=== PATIENT | female | born 1950 | race Caucasian/White ===

== ENCOUNTER 2019-09-14 12:19 | Inpatient (IN) ==
--- OUTSIDE RECORDS SUMMARY | 2019-09-14 12:25 | External Medical Summary | Continuity of Care Document ---
:1950 Author Name Peggy Burnham Address Unavailable Unavailable , Care Team Providers Name Role Phone Carloz Oliver [email or web address] [place] Unavailable Unavailable Unavailable Unavailable Unavailable Assessments Assessed Problems:Encounter for routine gynecological examinationSevere cervical dysplasiaHypertensionHypercholesterolemiaCondyloma acuminatum Problems Anxiety (300.00) (F41.9) Hypertension (401.9) (I10) Condyloma acuminatum (078.11) (A63.0) Hypercholesterolemia (272.0) (E78.00) History of Severe cervical dysplasia (233.1) (D06.9) Status: Resolved Encounter for routine gynecological examination (V72.31) (Z0 1.419) Allergies and Adverse Reactions No Known Drug Allergies (Allergy) Medications Sertraline HCl TABS Refills: 0 Norvasc TABS Refills: 0 Lipitor TABS Refills: 0 Procedures History of Cervical Conization Status: C ompleted History of Tubal Ligation Status: Comple joey History of Oral Surgery Tooth Extraction Status: Completed Immunizations Immunizations not documented Social History - Smoking Status Current every day smoker Interventions Labs/Procedures/ImagingPap Smear - Thin Prep with Reflex HPV; Done: 12 Jul 2013 Follow-ups/ReferralsFollow-up visit in 1 year Plan of Treatment Planned Observations Planned Goals not documented Results No Known Results Results not documented Encounters Appointment; Ronnell Oliver M.D. 12-Jul-2013 14:40 Encounter Diagnosis: Problem not documented
--- NOTE | 2019-09-14 13:48 | XRay Report ---
XR hip LT 2V w pelvis CLINICAL HISTORY: fall, L hip pain COMPARISON: CT of the abdomen and pelvis January 03, 2013. FINDINGS: The sacroiliac joints and symphysis pubis are intact. There is no acute fracture within th e pelvis or hips. IMPRESSION: No acute fracture within the pelvis or hips. Electronically signed by: Garett Bland M.D. 09/14/2019 1:47 PM
--- NOTE | 2019-09-14 13:49 | XRay Report ---
XR femur LT 2V routine CLINICAL HISTORY: left hip/leg pain pain COMPARISON: None. DISCUSSION: The bones and joint spaces appear intact. There is no evidence of fracture, dislocation o r bony disease. There is no evidence for soft tissue swelling. IMPRESSION: Negative study. The above report was generated using voice recognition software. It may contain grammatical, syntax or spelling errors. Electronically signed by: Emre Ruvalcaba M.D. 09/14/2019 1:47 PM
--- NOTE | 2019-09-14 14:18 | CT Scan Report ---
CT OF THE ABDOMEN AND PELVIS WITHOUT CONTRAST CLINICAL HISTORY: Left flank pain following fall. COMPARISON STUDY: CT of the abdomen and pelvis November 02, 2013. TECHNIQUE: Axial images of the abdomen and pelvis were obtained without IV contrast. Images were revi ewed in the axial, sagittal, and coronal planes. Automated exposure control was utilized for the yolette dy. A dose lowering technique was utilized adhering to the principles of ALARA. FINDINGS: Please note that the chest CT will be reported separately. Evaluation of the abdomen and pe lvis is suboptimal as unenhanced examination. No hemoperitoneum or pneumoperitoneum is noted. There i s no evidence for traumatic injury to the liver, spleen, adrenal glands, kidneys or pancreas on this unenhanced study. Gallbladder wall is partially calcified. The gallbladder is distended. There is no adjacent infiltration. There is no evidence for a bowel obstruction. No lymphadenopathy is present. T here is no free fluid. Bladder is moderately distended. No acute lumbar spine or pelvic fractures carey ntified. There is moderate atherosclerotic plaque of the abdominal aorta which is normal in caliber. IMPRESSION: 1. No acute traumatic findings within the abdomen or pelvis on unenhanced exam. 2. Partially calcified gallbladder wall with moderate gallbladder distention. No adjacent infiltratio n. These findings could be correlated with right upper quadrant pain and ultrasound if indicated. If asymptomatic, nonemergent surgical consultation might be considered given the partially calcified gal lbladder wall which suggests developing porcelain gallbladder. Electronically signed by: Garett Bland M.D. 09/14/2019 2:17 PM
--- NOTE | 2019-09-14 14:50 | CT Scan Report ---
CT chest wo con CT DOSE: 535.79 mGy.cm HISTORY: Trauma fall, L axillary pain TECHNIQUE: Multiaxial CT images of the chest were performed without contrast. A dose lowering techni que was utilized adhering to the principles of ALARA. COMPARISON: None. FINDINGS: The lungs are clear. The mediastinal vascular structures are within normal limits. No media stinal or hilar lymphadenopathy. No pleural effusion or pneumothorax. Limited views of the upper abdo men demonstrate a normal liver and spleen. Mild chronic apical fibrotic change considered benign. IMPRESSION: No acute process. The above report was generated using voice recognition software. It may contain grammatical, syntax or spelling errors. Electronically signed by: Emre Ruvalcaba M.D. 09/14/2019 2:49 PM
[2019-09-14 15:33] LABS: Basophils # (auto) 0.03 K/uL (0-0.2); Basophils % (auto) 0.3 %; Eosinophils # (auto) 0.07 K/uL (0-0.5); Eosinophils % (auto) 0.7 %; Hematocrit (blood only) 41.9 % (37-47); Hemoglobin 14.8 g/dL (12.0-16.0); Immature Granulocytes # (auto) 0.03 K/uL (0.00-0.02); Immature Granulocytes % (auto) 0.3 %; Lymphocytes # (auto) 2.27 K/uL (1.2-3.4); Lymphocytes % (auto) 21.6 %; Mean Corpuscular Hemoglobin 33.4 pg (25-34); Mean Corpuscular Hgb Conc 35.3 g/dL (32-36); Mean Corpuscular Volume 94.6 fL (80-100); Mean Platelet Volume 9.7 fL (7.4-10.4); Monocytes # (auto) 0.86 K/uL (0.11-0.59); Monocytes % (auto) 8.2 %; Neutrophils # (auto) 7.25 K/uL (1.4-6.5); Neutrophils % (auto) 68.9 %; Platelet Count 346 K/uL (130-400); RDW Coefficient of Variation 12.5 % (11.5-14.5); RDW Standard Deviation 43.6 fL (36.4-46.3); Red Blood Count 4.43 M/uL (4.2-5.4); White Blood Count 10.51 K/uL (4.8-10.8)
[2019-09-14 16:12] LABS: BUN Creatinine Ratio 15.7 (10-20); Calcium 9.5 mg/dl (8.5-10.1); Creatinine Clr Calc Pharmacy 70.7 ml/min; Est GFR (African American) 98.1; Est GFR (Non-African American) 84.6; Potassium 3.5 mmol/L (3.5-5.1)
[2019-09-14 16:22] LABS: Thyroid Stimulating Hormone 1.12 uIu/ml (0.300-4.500)
[2019-09-14 16:53] LABS: Appearance Urine Clear (Clear); Bilirubin Urine Negative (Negative); Blood Urine Negative (Negative); Color Urine Yellow; Glucose Urine UA Negative (Negative); Ketones Urine Negative (Negative); Leukocyte Esterase Urine Negative (Negative); Nitrite Urine Negative (Negative); Protein Urine Negative (Negative); Specific Gravity Urine 1.009 (1.000-1.030); Urobilinogen Urine Negative (Negative); pH Urine 6.5 (4.5-7.5)
[2019-09-14] MEDS ORDERED: POLYETHYLENE (MIRALAX) 17 GM PACK PO PRN (18:08)
[2019-09-14] MEDS ORDERED: ACETAMINOPHEN 325 MG TAB PO PRN (18:08)
[2019-09-14] MEDS ORDERED: ALUMINUM/MAGNESIUM SUSP 30 ML UDC PO PRN (18:08)
[2019-09-14] MEDS ORDERED: LABETALOL HCL IV 5 MG/ML 20ML IV STA (18:14)
--- NOTE | 2019-09-14 19:32 | History & Physical Report ---
Date of Service September 14, 2019 Assessment & Plan (1) Fall: 69 yo F w/ history of a stroke admitted for progressive weakness and fall Fall w/o acute traumatic process found on Femur XR, Hip and Pelvis XR, Abd/pelvis CT - no history of arrhythmia, no palpitations, no cardiac history, no LOC - placed on tele and continue to monitor for irregular rhythm - bruising up the right upper extremity - did not initiate chemotherapeutic DVT prophylaxis due to bruising, recent fall and concern for continued falls - likely 2/2 weakness - OT/PT evaluation placed progressive weakness likely 2/2 deconditioning, over 1 month - Electrolytes normal, glucose 109, TSH 1.12 - PT/OT evaluation placed Hx. of stroke - continue ASA 81 mg - continue to encourage smoking cessation - consider starting a statin for secondary prevention of stroke Gallbladder incidentally found to have calcification on CT abd/pelvis - consider general surgery consult vs. outpatient evaluation - patient nTTP in the RUQ DVT: SCDs Diet: regular Dispo: Med/Surg with Tele (2) Weakness: (3) Ambulatory dysfunction: History of Present Illness Chief Complaint: Weakness and fall Primary Care Provider: NO PCP Shirley Meadows is here for a fall that happened this morning. She described the fall as not being able to support herself on her walker. She has been getting progressively weaker over the last month. She previously was able to walk around and go up and down one step in their house but now does not feel stable enough to do this. She has a bruise on the right upper arm and left knee. She has a history of a stoke approximately 4 years ago. The stroke left her with weakness in her left side, she started using a walker after this. She has not seen a primary doctor in the last 4-5 years. She has only been taking 81 mg of ASA a day, and Miralax for occasional constipation. Surgical Hx.: Cervical precancer removed Social Hx.: 35 pack year smoking history, precontemplative ETOH: avg. 7/week Exercise includes doing dishes and working around the house Diet: described as "not the best," one coffee a day and drinks diet soda FHx: 2 X sisters had strokes in their 60's Preventative: patient declined the flu shot Allergies Allergy/AdvReac Type Severity Reaction Status Date / Time medroxyprogesterone Allergy pruritic Verified 09/14/19 13:52 skin [place] Allergy Mild Unknown Uncoded 09/14/19 13:52 Home Medications Home Medications Medication Instructions Recorded Confirmed Type No Known Home Medications 09/14/19 09/14/19 History amlodipine 5 mg PO DAILY #30 tab 09/20/19 Rx aspirin [Ecotrin Low Strength] 81 mg PO QAM 30 Days #30 tab 09/20/19 Rx atorvastatin 20 mg PO QAM 30 Days #30 tab 09/20/19 Rx Past Med/Surg History Medical History Hypertension History of stroke CVA (cerebral vascular accident) Family History Other Cancer Diabetes Social History Preferred Language: Citizen Of [place] Communication Ability: Effective [employer]ger [employer] Required: No Beliefs That Will Affect Care: None marital status: Current Living Situation: Spouse current occupational status: employed Feels Safe at Home: Yes Smoking Status: Current every day smoker Tobacco Type: cigarettes ; Cigarettes Per Day: 10 ; Hx Alcohol Use: Yes Alcohol type: beer Hx Substance Use: No Review of Systems Review of Systems: Constitutional: Denies fever/chills, N/V, fatigue, change in weight Head: Denies trauma to her head, LOC, Headache, confusion, lightheadedness, change in vision Neurologic: Denies syncope, slurring of speech, numbness, tingling Cardiac: Denies chest pain, murmurs, palpitations, PND, DIAZ, leg edema Pulm: Denies cough, asthma, shortness of breath, pain on inspiration, wheezing, sputum production Skin: Denies itching, rashes, lumps, sores GI: Denies diarrhea, dysphagia, bleeding (oral or anal), change in bowel habits : denies urgency, frequency dysuria Physical Exam Constitutional: well nourished, cooperative and comfortable; no acute distress Eyes: PERRL, conjunctivae normal, anicteric sclerae ENMT: external ear and nose normal, oropharynx normal Neck: trachea midline, no thyromegaly Respiratory: normal respiratory effort, lungs clear to auscultation Cardiovascular: RRR, no murmur, no edema Gastrointestinal (Abdomen): normal bowel sounds, soft, nontender, no hepatosplenomegaly Musculoskeletal: Muscle strength 4/5 in the left upper and lower extremity. Neurologic: patellar DTR's 2+ bilat, sensation intact and PERRL, EOMI, accommodation nl, no face palsy, no dysarthria CN's II-XI intact bilaterally Speech / Cognition: normal speech Psychiatric: A+Ox3, euthymic affect Results & Data Vital Signs (Past 12 Hours) Vital Signs Temp Pulse Pulse Resp BP BP Pulse Ox 09/14/19 18:45 64 16 155/95 H 95 09/14/19 18:00 75 20 181/107 H 95 09/14/19 16:27 77 18 176/98 H 95 09/14/19 14:30 79 22 179/114 H 97 09/14/19 12:27 36.9 C 89 22 169/[address] IMPRESSION: No acute process. Femur XR IMPRESSION: Negative study. Hip and pelvis XR IMPRESSION: No acute fracture within the pelvis or hips. CT abd/pelvis IMPRESSION: 1. No acute traumatic findings within the abdomen or pelvis on unenhanced exam. 2. Partially calcified gallbladder wall with moderate gallbladder distention. No adjacent infiltration. These findings could be correlated with right upper quadrant pain and ultrasound if indicated. If asymptomatic, nonemergent surgical consultation might be considered given the partially calcified gallbladder wall which suggests developing porcelain gallbladder. Code Status & VTE Plan Code Status DNR VTE Prophylaxis Plan VTE Prophylaxis will be ordered: Yes Supervising Physician Co-Signing Physician Notes I saw and examined pt with Dr. Bradley MD and I was actively involved in the assessment and plan . I agree with this H&P. PG Care Time/CCT Total # of Minutes Spent Total Time Spent with Patient: Total time spent is greater than 50% in coordination of care (as documented) at patient's floor/unit and/or counseling patient: Resident Activity Tracking Resident Involvement: Resident Care Provided Care Provided: Adult Hospital Medicine (1) Fall Encounter type: initial encounter Qualified Code(s): W19.XXXA - Unspecified fall, initial encounter
--- NOTE | 2019-09-14 20:20 | Emergency Department Note ---
Entered by Disha Heard acting as a scribe for Stalin Velazquez M.D. History of Present Illness General Chief complaint: Fall Stated complaint: fall/ L side pain Source: patient History of Present Illness Onset (ago): minute(s) (prior to arrival) Location: left (hip, thigh, ribs) Pain Consistency: + other (episode) Maximum Pain Intensity: 4 Current Pain Intensity: 5 Quality: + other (fall) Associated symptoms: + denies other symptoms (dizziness, abdominal pain, neck pain, back pain, LOC, arm pain, hitting her head, falling frequently), + weakness and + other (left hip pain, left thigh pain, left sided rib pain) The patient is a 69 year old female who presents to the Emergency Room with complaints of an episode of a fall occurring prior to arrival. The patient stat es that she had a stroke a few years ago and has some left sided deficits from it. She notes that she has used a walker because of it. She states that over time she has gradually been deteriorating in strength. She reports that this morning she ended up falling because her legs just gave out. She states that she felt too weak to stand and hold herself up. She reports that she ended up collapsing straight down, but since then has had left hip pain, left thigh pain, and left sided rib pain. She states that she was unable to stand up on her own and had to have her help get her up and to a chair. The patient currently rates her pain as a 5/10 in severity. The patient denies dizziness, ab dominal pain, neck pain, back pain, hitting her head, LOC, arm pain, ever falling from being weak before, falling frequently, taking anything for her pain, and the use of blood thinners. Home Medications Home Medications Medication Instructions Recorded Confirmed Type No Known Home Medications 09/14/19 09/14/19 History Allergies Allergy/AdvReac Type Severity Reaction Status Date / Time medroxyprogesterone Allergy pruritic Verified 09/14/19 13:52 skin [place] Allergy Mild Unknown Uncoded 09/14/19 13:52 Past Med/Surg History Medical History CVA (cerebral vascular accident) Family History Other Cancer Diabetes Social History Preferred Language: Divehi Communication Ability: Effective [employer] W[employer] Required: No Beliefs That Will Affect Care: None marital status: Current Living Situation: Spouse current occupational status: employed Other Information That Helps Us Care for You: No Feels Safe at Home: Yes Safety Concerns: Feels Safe At This Time Smoking Status: Current every day smoker Tobacco Type: cigarettes ; Cigarettes Per Day: 10 ; Hx Alcohol Use: Yes Alcohol type: beer Hx Substance Use: No Review of Systems See HPI for pertinent positives & negatives. and A total of 10 systems reviewed and were otherwise negative Physical Exam Vital Signs Vital Signs - 24 hr 09/14/19 12:27 09/14/19 14:30 09/14/19 16:27 Temperature 36.9 C Temperature Source Oral Sepsis Recent Fever Within 48 Hours No Sepsis Action Taken by Nursing No Action Required Pulse Rate 89 Pulse Rate [Right Finger] 79 77 Pulse Rhythm Regular Pulse Rhythm [Right Finger] Regular Pulse Strength Normal Pulse Strength [Right Finger] Normal Respiratory Rate 22 22 18 Respiratory Effort / Characteristics Non-Labored Spontaneous Non-Labored Non-Labored Spontaneous Respiratory Depth Normal Normal Normal Respiratory Pattern Regular Regular Blood Pressure 169/111 H Blood Pressure [Right Arm] 179/114 H 176/98 H Blood Pressure Mean 130 Blood Pressure Mean [Right Arm] 135 124 Blood Pressure Position Lying Blood Pressure Position [Right Arm] Lying Pulse Oximetry 94 97 95 Oxygen Delivery Method Room Air Room Air Room Air 09/14/19 18:00 Temperature Temperature Source Sepsis Recent Fever Within 48 Hours Sepsis Action Taken by Nursing Pulse Rate Pulse Rate [Right Finger] 75 Pulse Rhythm Pulse Rhythm [Right Finger] Pulse Strength Pulse Strength [Right Finger] Respiratory Rate 20 Respiratory Effort / Characteristics Non-Labored Spontaneous Respiratory Depth Normal Respiratory Pattern Regular Blood Pressure Blood Pressure [Right Arm] 181/107 H Blood Pressure Mean Blood Pressure Mean [Right Arm] 131 Blood Pressure Position Blood Pressure Position [Right Arm] Sitting Pulse Oximetry 95 Oxygen Delivery Method Room Air GENERAL: Awake, alert, well-appearing, in no distress HENT: Normocephalic, atraumatic EYES: Normal conjunctiva. Sclera non-icteric. NECK: Supple. No nuchal rigidity. RESPIRATORY: Clear to auscultation. No wheezes. Normal respiratory effort. CARDIAC: Normal rate. Normal rhythm. Extremities warm and well perfused. GI: Soft, non-distended. No tenderness to palpation. No rebound or guarding. No masses. RECTAL: Deferred. MUSCULOSKELETAL: Atraumatic. Mild left chest wall tenderness. There is no CVA tenderness to palpation. Contusion to right upper arm without bony tenderness. NVI in all extremities. LOWER EXTREMITIES: Calves are equal size bilaterally and non-tender. No edema. Mild left hip tenderness. NEURO: Normal sensorium. No sensory or motor deficits noted. No facial droop. No slurred speech. Flattened affect. SKIN: Warm and dry. No jaundice noted. Course 1314: Past medical records reviewed. The patient was evaluated in room B9. A complete history and physical exam was performed. 1500: I reevaluated the patient and she is too weak to walk and go home. We are going to see about placing her in a rehab. 1619: The field nurse case manager informed me that the patient will not be able to get into a rehab tonight. 1637: I reevaluated the patient and updated her and her on her test results. I discussed the treatment plan with them. They verbally agree and understand. 1659: I discussed the patient's case with Dr. Patel- [facility] [place] Hospitalist. She will evaluate the patient for further management. Administered Medications Discontinued Medications Labetalol HCl (Normodyne) 10 mg IV NOW STA Stop: 09/14/19 18:15 Last Admin: 09/14/19 18:43 Dose: 10 mg Documented by: [id number] Cosigned by: [id number] Medical Decision Making Differential Diagnosis Differential diagnoses include major intracranial, cervical, spinal, thoracic, abdominal, pelvic and neurologic injury. Fracture, contusion, sprain, strain, laceration, abrasions included as well. Medical Records Attestation: I reviewed the patient's medical records. Home Medications Current Medication List: was personally reviewed by me Laboratory Data Attestation: I reviewed the patient's lab results. Result diagrams: 09/14/19 15:19 09/14/19 15: Lab Results 09/14/19 09/14/19 09/14/19 Range/Units 15: 15: 15:19 WBC 10.51 (4.8-10.8) K/uL RBC 4.43 (4.2-5.4) M/uL Hgb 14.8 (12.0-16.0) g/dL Hct 41.9 (37-47) % MCV 94.6 (80-100) fL MCH 33.4 (25-34) pg MCHC 35.3 (32-36) g/dL RDW Std Deviation 43.6 (36.4-46.3) fL RDW Coeff of Sloan 12.5 (11.5-14.5) % Plt Count 346 (130-400) K/uL MPV 9.7 (7.4-10.4) fL Immature Gran % (Auto) 0.3 % Neut % (Auto) 68.9 % Lymph % (Auto) 21.6 % Keith % (Auto) 8.2 % Eos % (Auto) 0.7 % Baso % (Auto) 0.3 % Immature Gran # (Auto) 0.03 H (0.00-0.02) K/uL Neut # (Auto) 7.25 H (1.4-6.5) K/uL Lymph # (Auto) 2.27 (1.2-3.4) K/uL Keith # (Auto) 0.86 H (0.11-0.59) K/uL Eos # (Auto) 0.07 (0-0.5) K/uL Baso # (Auto) 0.03 (0-0.2) K/uL Sodium 140 (136-145) mmol/L Potassium 3.5 (3.5-5.1) mmol/L Chloride 109 H (98-107) mmol/L Carbon Dioxide 22 (21-32) mmol/L Anion Gap 9.0 (3-11) BUN 11 (7-18) mg/dl Creatinine 0.73 (0.6-1.2) mg/dl Est Cr Clr Drug Dosing 70.7 ml/min Est GFR ( Amer) 98.1 Est GFR (Non-Af Amer) 84.6 BUN/Creatinine Ratio 15.7 (10-20) Glucose 109 H (70-99) mg/dl Calcium 9.5 (8.5-10.1) mg/dl Ammonia (11-32) umol/L TSH 1.120 (0.300-4.500) uIu/ml Urine Color Urine Appearance (Clear) Urine pH (4.5-7.5) Ur Specific Golden (1.000-1.030) Urine Protein (Negative) Urine Glucose (UA) (Negative) Urine Ketones (Negative) Urine Blood (Negative) Urine Nitrite (Negative) Urine Bilirubin (Negative) Urine Urobilinogen (Negative) Ur Leukocyte Esterase (Negative) Ethyl Alcohol mg/dL < 3.0 (0-3) mg/dl 09/14/19 09/14/19 Range/Units 15:19 16:28 WBC (4.8-10.8) K/uL RBC (4.2-5.4) M/uL Hgb (12.0-16.0) g/dL Hct (37-47) % MCV (80-100) fL MCH (25-34) pg MCHC (32-36) g/dL RDW Std Deviation (36.4-46.3) fL RDW Coeff of Sloan (11.5-14.5) % Plt Count (130-400) K/uL MPV (7.4-10.4) fL Immature Gran % (Auto) % Neut % (Auto) % Lymph % (Auto) % Keith % (Auto) % Eos % (Auto) % Baso % (Auto) % Immature Gran # (Auto) (0.00-0.02) K/uL Neut # (Auto) (1.4-6.5) K/uL Lymph # (Auto) (1.2-3.4) K/uL Keith # (Auto) (0.11-0.59) K/uL Eos # (Auto) (0-0.5) K/uL Baso # (Auto) (0-0.2) K/uL Sodium (136-145) mmol/L Potassium (3.5-5.1) mmol/L Chloride (98-107) mmol/L Carbon Dioxide (21-32) mmol/L Anion Gap (3-11) BUN (7-18) mg/dl Creatinine (0.6-1.2) mg/dl Est Cr Clr Drug Dosing ml/min Est GFR ( Amer) Est GFR (Non-Af Amer) BUN/Creatinine Ratio (10-20) Glucose (70-99) mg/dl Calcium (8.5-10.1) mg/dl Ammonia < 10.0 L (11-32) umol/L TSH (0.300-4.500) uIu/ml Urine Color Yellow Urine Appearance Clear (Clear) Urine pH 6.5 (4.5-7.5) Ur Specific Golden 1.009 (1.000-1.030) Urine Protein Negative (Negative) Urine Glucose (UA) Negative (Negative) Urine Ketones Negative (Negative) Urine Blood Negative (Negative) Urine Nitrite Negative (Negative) Urine Bilirubin Negative (Negative) Urine Urobilinogen Negative (Negative) Ur Leukocyte Esterase Negative (Negative) Ethyl Alcohol mg/dL (0-3) mg/dl Imaging Data Radiologist's Impression: Radiology results as stated below per my review and the radiologist's interpretation: XR hip LT 2V w pelvis CLINICAL HISTORY: fall, L hip pain COMPARISON: CT of the abdomen and pelvis January 03, 2013. FINDINGS: The sacroiliac joints and symphysis pubis are intact. There is no acute fracture within the pelvis or hips. IMPRESSION: No acute fracture within the pelvis or hips. Electronically signed by: Garett Bland M.D. 09/14/2019 1:47 PM XR femur LT 2V routine CLINICAL HISTORY: left hip/leg pain pain COMPARISON: None. DISCUSSION: The bones and joint spaces appear intact. There is no evidence of fracture, dislocation or bony disease. There is no evidence for soft tissue swelling. IMPRESSION: Negative study. The above report was generated using voice recognition software. It may contain grammatical, syntax or spelling errors. Electronically signed by: Emre Ruvalcaba M.D. 09/14/2019 1:[address] chest wo con CT DOSE: 535.79 mGy.cm HISTORY: Trauma fall, L axillary pain TECHNIQUE: Multiaxial CT images of the chest were performed without contrast. A dose lowering technique was utilized adhering to the principles of ALARA. COMPARISON: None. FINDINGS: The lungs are clear. The mediastinal vascular structures are within normal limits. No mediastinal or hilar lymphadenopathy. No pleural effusion or pneumothorax. Limited views of the upper abdomen demonstrate a normal liver and spleen. Mild chronic apical fibrotic change considered benign. IMPRESSION: No acute process. The above report was generated using voice recognition software. It may contain grammatical, syntax or spelling errors. Electronically signed by: Emre Ruvalcaba M.D. 09/14/2019 2:[address] OF THE ABDOMEN AND PELVIS WITHOUT CONTRAST CLINICAL HISTORY: Left flank pain following fall. COMPARISON STUDY: CT of the abdomen and pelvis November 02, 2013. TECHNIQUE: Axial images of the abdomen and pelvis were obtained without IV contrast. Images were reviewed in the axial, sagittal, and coronal planes. Automated exposure control was utilized for the study. A dose lowering technique was utilized adhering to the principles of ALARA. FINDINGS: Please note that the chest CT will be reported separately. Evaluation of the abdomen and pelvis is suboptimal as unenhanced examination. No hemoperitoneum or pneumoperitoneum is noted. There is no evidence for traumatic injury to the liver, spleen, adrenal glands, kidneys or pancreas on this unenhanced study. Gallbladder wall is partially calcified. The gallbladder is distended. There is no adjacent infiltration. There is no evidence for a bowel obstruction. No lymphadenopathy is present. There is no free fluid. Bladder is moderately distended. No acute lumbar spine or pelvic fractures identified. There is moderate atherosclerotic plaque of the abdominal aorta which is normal in caliber. IMPRESSION: 1. No acute traumatic findings within the abdomen or pelvis on unenhanced exam. 2. Partially calcified gallbladder wall with moderate gallbladder distention. No adjacent infiltration. These findings could be correlated with right upper quadrant pain and ultrasound if indicated. If asymptomatic, nonemergent surgical consultation might be considered given the partially calcified gallbladder wall which suggests developing porcelain gallbladder. Electronically signed by: Garett Bland M.D. 09/14/2019 2:17 PM Blood Pressure Blood Pressure Findings: Elevated blood pressure Blood Pressure Disposition: further management by hospitalist SHAMEKA Key Patient is a 69-year-old female with a past medical history including hypertension and prior stroke presenting today after a fall. Evidently uses a walker at home with some left-sided deficits from her old stroke that have been somewhat worsening. Today at 930 fell from standing onto her left side. Complaining of left rib, hip, thigh pain. Denies loss of consciousness. Patient has good range of motion left lower extremity lowering my suspicion for hip fracture. Some left axillary tenderness with assist scans of the chest abdomen pelvis noncontrast were obtained to exclude traumatic injury. X-rays of the left femur and hip were completed. Again denies striking her head or neck pain. Has a bruise on her right upper arm but no significant tenderness here. Denies use of blood thinners. States her legs just got weak and gave out on her and she is had some chronic weakness issues relying on a walker for some time. No new focal neurological deficits. Does not sound syncopal to to me. CT of the chest abdomen pelvis without significant traumatic injuries. CT the abdomen pelvis does notes changes of the gallbladder. Patient has significant tender ness here but did relay these findings the patient for further outpatient work- up for possible porcelain gallbladder. Patient and however do not feel comfortable at home due to her weakness. Basic labs were obtained without significant findings here. Again the patient has no complaint of head trauma or focal neurological deficits although she has a bit of a flat affect. Discussed with case management. Unable to get rehab referrals out of the ER at this time for her. Discussed with the hospitalist for admission given her weakness and ambulatory dysfunction for further rehab and treatment. Impression & Plan Ambulatory dysfunction, Fall, Weakness Discharge Plan Visit Data *Final* Discharge Date/Time: 09/14/19 19:04 Chief Complaint: Fall Stated Complaint: fall/ L side pain ED Provider: Stalin Velazquez Discharge Problem: Ambulatory dysfunction, Fall, Weakness Patient Disposition: Admitted As Inpatient Discharge Instructions Interventions: ED Discharge Assessment Last Done: 09/14/19 19:04 Discharge Problem: Fall Qualifiers: Encounter type: initial encounter Qualified Code(s): W19.XXXA - Unspecified fall, initial encounter The scribe's documentation has been prepared under my direction and personally reviewed by me in its entirety. I confirm that the note above accurately reflects all work, treatment, procedures, and medical decision making performed by me.
[2019-09-14] MEDS: ACETAMINOPHEN 325 MG TAB PO PRN (20:39)
[2019-09-15 07:43] LABS: BUN Creatinine Ratio 10.7 (10-20); Calcium 9.1 mg/dl (8.5-10.1); Creatinine Clr Calc Pharmacy 69.5 ml/min; Est GFR (African American) 98.1; Est GFR (Non-African American) 84.6; Potassium 3.5 mmol/L (3.5-5.1)
--- NOTE | 2019-09-15 10:26 | Hospitalist Progress Note ---
Date of Service September 15, 2019 Assessment & Plan (1) Weakness: Patient with generalized weakness, may be multifactorial including deconditioning. PT saw the patient this morning is recommending rehab. We are awaiting OT evaluation. Patient typically ablates with a walker and is otherwis e independent lives with her . Present on Admission?: Yes (2) History of stroke: Patient is on low-dose aspirin, should be continued. I would like to add a high density statin to this regimen. Check fasting lipids as well as hemoglobin A1c. (3) Hypertension: Patient's blood pressure remains elevated. Will start amlodipine 5 mg p.o. daily, first dose today. Monitor for further titration versus the possible need for a second agent. This may need to be titrated after the patient's discharge. Subjective Patient with no active complaints today. She does note a slow progressive weakness over the course of several weeks. She typically relates with a walker at home. Of note, the patient denies taking any prescription medications and only uses a low-dose aspirin. I have noted that her blood pressure has been elevated throughout her hospital course so far and is relatively bradycardic with a pulse of 59 this morning. Her only injury is a small bruise in the anterior right shoulder without accompanying hematoma. Review of Systems Review of Systems: All systems reviewed & are unremarkable except as noted in HPI & below Physical Exam Physical Exam: GENERAL: Non-toxic in appearance. INTEGUMENTARY: Warm, dry, and [place]. HEAD: Normocephalic. EYES: without scleral icterus or trauma. ENT/OROPHARYNX: clear and moist. LYMPHADENOPATHY/NECK: Is supple without lymphadenopathy or meningismus. RESPIRATORY: Lungs clear and equal. CARDIOVASCULAR: Regular rate and rhythm. GI/ABDOMEN: Soft and nontender. No organomegaly or pulsatile mass. No rebound or guarding. Normal bowel sounds. EXTREMITIES: Warm and well perfused. BACK: No CVA tenderness. NEUROLOGICAL: Intact without focal deficits. PSYCHIATRIC: normal affect. MUSCULOSKELETAL: Normally developed with good muscle tone. Results & Data Vital Signs (Past 12 Hours) Vital Signs Temp Pulse Pulse Resp BP BP Pulse Ox 09/15/19 07:48 59 L 09/15/19 07:47 36.8 C 66 20 166/98 H 95 09/15/19 04:27 36.4 C L 62 18 145/83 H 94 09/14/19 23:00 36.7 C 64 20 117/75 96 09/14/19 22:56 70 PG Care Time/CCT Total # of Minutes Spent Total Time Spent with Patient: Total time spent is greater than 50% in coordination of care (as documented) at patient's floor/unit and/or counseling patient:
[2019-09-15] MEDS: AMLODIPINE BESYLATE 5 MG TAB PO SCH (11:41)
[2019-09-16] MEDS: ACETAMINOPHEN 325 MG TAB PO PRN (07:12)
[2019-09-16 07:58] LABS: Basophils # (auto) 0.04 K/uL (0-0.2); Basophils % (auto) 0.6 %; Eosinophils # (auto) 0.28 K/uL (0-0.5); Eosinophils % (auto) 4.1 %; Hematocrit (blood only) 41.4 % (37-47); Hemoglobin 13.8 g/dL (12.0-16.0); Immature Granulocytes # (auto) 0.02 K/uL (0.00-0.02); Immature Granulocytes % (auto) 0.3 %; Lymphocytes # (auto) 2.14 K/uL (1.2-3.4); Lymphocytes % (auto) 31.6 %; Mean Corpuscular Hgb Conc 33.3 g/dL (32-36); Mean Platelet Volume 10.6 fL (7.4-10.4); Monocytes # (auto) 0.67 K/uL (0.11-0.59); Monocytes % (auto) 9.9 %; Neutrophils # (auto) 3.62 K/uL (1.4-6.5); Neutrophils % (auto) 53.5 %; Platelet Count 330 K/uL (130-400); RDW Coefficient of Variation 12.8 % (11.5-14.5); RDW Standard Deviation 46.4 fL (36.4-46.3); Red Blood Count 4.18 M/uL (4.2-5.4); White Blood Count 6.77 K/uL (4.8-10.8)
[2019-09-16 08:14] LABS: Estimated Average Glucose 120 mg/dl; Hemoglobin A1C 5.8 % (4.5-5.6)
[2019-09-16] MEDS: AMLODIPINE BESYLATE 5 MG TAB PO SCH (08:23)
[2019-09-16] MEDS: ATORVASTATIN 20 MG TAB PO SCH (08:23)
[2019-09-16 08:24] LABS: BUN Creatinine Ratio 12.7 (10-20); Calcium 8.5 mg/dl (8.5-10.1); Est GFR (African American) 85.2; Est GFR (Non-African American) 73.5; Magnesium 2.4 mg/dl (1.8-2.4); Potassium 3.5 mmol/L (3.5-5.1)
[2019-09-16] MEDS: ASPIRIN 81 MG ECTAB PO SCH (08:46)
--- NOTE | 2019-09-16 12:44 | Hospitalist Progress Note ---
Date of Service September 16, 2019 Assessment & Plan (1) Weakness: Patient with generalized weakness, may be multifactorial including deconditioning. Both PT and OT are recommending acute rehab placement, awaiting insurance approval although I see from documentation the patient already has a bed. If the approval is obtained, patient could conceivably be discharged today. (2) History of stroke: Patient is on low-dose aspirin, should be continued. Continue atorvastatin as ordered. Patient has a negative hemoglobin A 1C. (3) Hypertension: Much improved with the addition of amlodipine. Continue to monitor, consider further imaging depending on ongoing blood pressures. Subjective Patient with no active complaints today. She is tearful since she has a sister in the [place] who is currently on hospice and does not have long to live. She denies any chest pain or shortness of breath. She does feel that she requires short-term placement for rehab and is working with case management for this. She otherwise has no new issues and is tolerating her medications well. Blood pressure is also much improved with the addition of amlodipine. Review of Systems Review of Systems: All systems reviewed & are unremarkable except as noted in HPI & below Physical Exam Physical Exam: GENERAL: Non-toxic in appearance. INTEGUMENTARY: Warm, dry, and [place]. HEAD: Normocephalic. EYES: without scleral icterus or trauma. ENT/OROPHARYNX: clear and moist. LYMPHADENOPATHY/NECK: Is supple without lymphadenopathy or meningismus. RESPIRATORY: Lungs clear and equal. CARDIOVASCULAR: Regular rate and rhythm. GI/ABDOMEN: Soft and nontender. No organomegaly or pulsatile mass. No rebound or guarding. Normal bowel sounds. EXTREMITIES: Warm and well perfused. BACK: No CVA tenderness. NEUROLOGICAL: Intact without focal deficits. PSYCHIATRIC: normal affect. MUSCULOSKELETAL: Normally developed with good muscle tone. Results & Data Vital Signs (Past 12 Hours) Vital Signs Temp Pulse Pulse Resp BP Pulse Ox 09/16/19 08:01 36.8 C 62 16 137/84 95 09/16/19 07:00 54 L 09/16/19 05:20 57 L 09/16/19 03:52 36.3 C L 88 16 125/84 97 PG Care Time/CCT Total # of Minutes Spent Total Time Spent with Patient: Total time spent is greater than 50% in coordination of care (as documented) at patient's floor/unit and/or counseling patient:
[2019-09-17] MEDS: ASPIRIN 81 MG ECTAB PO SCH (07:44)
[2019-09-17] MEDS: ATORVASTATIN 20 MG TAB PO SCH (07:44)
[2019-09-17] MEDS: AMLODIPINE BESYLATE 5 MG TAB PO SCH (07:44)
--- NOTE | 2019-09-17 09:39 | Hospitalist Progress Note ---
Date of Service September 17, 2019 Assessment & Plan (1) Weakness: Patient with generalized weakness, may be multifactorial including deconditioning. Patient was previously living at home but was having frequent falls, patient is now planned to go to nursing home once insurance approval and bed arrangements are made. Continue PT/OT until then. (2) History of stroke: Patient is on low-dose aspirin, should be continued. Continue atorvastatin as ordered. Patient has a normal hemoglobin A 1C. (3) Hypertension: Much improved with the addition of amlodipine. A little elevated today, if this continues, consider addition of a second agent. Subjective Patient with no active complaints today. Sitting in chair next to bed, seems to be better emotionally. Has no new complaints. Patient's insurance rejected acute rehab, patient now working towards nursing home. Review of Systems Review of Systems: All systems reviewed & are unremarkable except as noted in HPI & below Physical Exam Physical Exam: GENERAL: Non-toxic in appearance. INTEGUMENTARY: Warm, dry, and [place]. HEAD: Normocephalic. EYES: without scleral icterus or trauma. ENT/OROPHARYNX: clear and moist. LYMPHADENOPATHY/NECK: Is supple without lymphadenopathy or meningismus. RESPIRATORY: Lungs clear and equal. CARDIOVASCULAR: Regular rate and rhythm. GI/ABDOMEN: Soft and nontender. No organomegaly or pulsatile mass. No rebound or guarding. Normal bowel sounds. EXTREMITIES: Warm and well perfused. BACK: No CVA tenderness. NEUROLOGICAL: Intact without focal deficits. PSYCHIATRIC: normal affect. MUSCULOSKELETAL: Normally developed with good muscle tone. Results & Data Vital Signs (Past 12 Hours) Vital Signs Temp Pulse Pulse Resp BP Pulse Ox 09/17/19 07:14 36.6 C 95 H 20 167/89 H 97 09/17/19 03:28 36.5 C 93 H 19 148/93 H 96 09/17/19 03:12 55 L 09/16/19 23:01 36.5 C 53 L 19 123/79 96 PG Care Time/CCT Total # of Minutes Spent Total Time Spent with Patient: Total time spent is greater than 50% in coordination of care (as documented) at patient's floor/unit and/or counseling patient:
[2019-09-17] MEDS: ACETAMINOPHEN 325 MG TAB PO PRN (19:25)
[2019-09-18] MEDS: ATORVASTATIN 20 MG TAB PO SCH (07:31)
[2019-09-18] MEDS: AMLODIPINE BESYLATE 5 MG TAB PO SCH (07:31)
[2019-09-18] MEDS: ASPIRIN 81 MG ECTAB PO SCH (07:31)
--- NOTE | 2019-09-18 12:08 | Hospitalist Progress Note ---
Date of Service September 18, 2019 Assessment & Plan (1) Weakness: Patient with generalized weakness, may be multifactorial including deconditioning. Patient was previously living at home but was having frequent falls, patient is now planned to go to residential once insurance approval and bed arrangements are made. Continue PT/OT until then. Tentative plan to discharge on 09/19 once placement is arranged. (2) History of stroke: Patient is on low-dose aspirin, should be continued. Continue atorvastatin as ordered. Patient has a normal hemoglobin A 1C. (3) Hypertension: Much improved with the addition of amlodipine. Blood pressure much improved, continue to monitor. Subjective Patient with no active complaints today. No new issues, otherwise feels well. Resting in bed. Has remained afebrile vitals are otherwise stable. Review of Systems Review of Systems: All systems reviewed & are unremarkable except as noted in HPI & below Physical Exam Physical Exam: GENERAL: Non-toxic in appearance. INTEGUMENTARY: Warm, dry, and [place]. HEAD: Normocephalic. EYES: without scleral icterus or trauma. ENT/OROPHARYNX: clear and moist. LYMPHADENOPATHY/NECK: Is supple without lymphadenopathy or meningismus. RESPIRATORY: Lungs clear and equal. CARDIOVASCULAR: Regular rate and rhythm. GI/ABDOMEN: Soft and nontender. No organomegaly or pulsatile mass. No rebound or guarding. Normal bowel sounds. EXTREMITIES: Warm and well perfused. BACK: No CVA tenderness. NEUROLOGICAL: Intact without focal deficits. PSYCHIATRIC: normal affect. MUSCULOSKELETAL: Normally developed with good muscle tone. Results & Data Vital Signs (Past 12 Hours) Vital Signs Temp Pulse Resp BP Pulse Ox 09/18/19 07:24 36.7 C 65 18 115/72 98 09/18/19 04:42 36.5 C 62 18 145/83 H 97 PG Care Time/CCT Total # of Minutes Spent Total Time Spent with Patient: Total time spent is greater than 50% in coordination of care (as documented) at patient's floor/unit and/or counseling patient:
[2019-09-19] MEDS: AMLODIPINE BESYLATE 5 MG TAB PO SCH (08:06)
[2019-09-19] MEDS: ATORVASTATIN 20 MG TAB PO SCH (08:06)
[2019-09-19] MEDS: ASPIRIN 81 MG ECTAB PO SCH (08:06)
--- NOTE | 2019-09-19 16:47 | Hospitalist Progress Note ---
Date of Service September 19, 2019 Assessment & Plan (1) Weakness: Patient with generalized weakness, may be multifactorial including deconditioning. Patient was previously living at home but was having frequent falls, patient is now planned to go to long term once insurance approval and bed arrangements are made. Continue PT/OT until then. [facility] can accept tomorrow pending insurance auth (2) History of stroke: Patient is on low-dose aspirin, should be continued. Continue atorvastatin as ordered. Patient has a normal hemoglobin A 1C. (3) Hypertension: Much improved with the addition of amlodipine. Blood pressure much improved, continue to monitor. 130-160 systolic today Subjective patient says she still has weakness in her legs, more on right side upper extremity strength is intact she is eating, drinking well has had a BM, no issues urinating discussed going to rehab, she agrees d/w CM, [facility] can accept tomorrow Review of Systems Review of Systems: All systems reviewed & are unremarkable except as noted in HPI & below Musculoskeletal: + muscle weakness (legs); no back pain, no neck pain and no joint pain Physical Exam Constitutional: WD/WN, vitals as above Eyes: PERRL, conjunctivae normal, anicteric sclerae ENMT: external ear and nose normal, oropharynx normal Neck: trachea midline, no thyromegaly Respiratory: normal respiratory effort, lungs clear to auscultation Cardiovascular: RRR, no murmur, no edema Gastrointestinal (Abdomen): normal bowel sounds, soft, nontender, no hepatosplenomegaly Musculoskeletal: Head/Neck/Chest: normocephalic and head atraumatic Extremities: extremities normal to inspection and + abnormal strength (4 / 5 strength in legs bilaterally); no cyanosis and no clubbing Skin: no rashes, warm and dry Neurologic: patellar DTR's 2+ bilat, sensation intact and PERRL, EOMI, accommodation nl, no face palsy, no dysarthria Psychiatric: A+Ox3, euthymic affect Lymphatic: no cervical or axillary lymphadenopathy Results & Data Vital Signs (Past 12 Hours) Vital Signs Temp Pulse Pulse Resp BP Pulse Ox 09/19/19 15:01 36.8 C 60 17 148/90 H 97 09/19/19 14:59 60 09/19/19 11:00 36.8 C 78 18 135/77 98 09/19/19 07:00 36.6 C 76 18 153/94 H 95 Medications Administered Current Inpatient Medications Acetaminophen (Tylenol) 650 mg PO Q4H PRN PRN Reason: Pain Stop: 10/14/19 19:57 Last Admin: 09/17/19 19:25 Dose: 650 mg Documented by: Amlodipine Besylate (Norvasc) 5 mg PO [facility] Stop: 10/15/19 10:29 Last Admin: 09/19/19 08:06 Dose: 5 mg Documented by: Aspirin (Ecotrin Ectab) 81 mg PO [facility] Stop: 10/16/19 08:59 Last Admin: 09/19/19 08:06 Dose: 81 mg Documented by: Atorvastatin Calcium (Lipitor) 20 mg PO [facility] Stop: 10/16/19 08:59 Last Admin: 09/19/19 08:06 Dose: 20 mg Documented by: PG Care Time/CCT Total # of Minutes Spent Total Time Spent with Patient: Total time spent is greater than 50% in coordination of care (as documented) at patient's floor/unit and/or counseling patient:
[2019-09-20 04:26] VITALS: O2SAT 96
[2019-09-20 07:40] VITALS: PULSE 65; TEMP 97.9
[2019-09-20] MEDS: ASPIRIN 81 MG ECTAB PO SCH (07:55)
[2019-09-20] MEDS: AMLODIPINE BESYLATE 5 MG TAB PO SCH (07:55)
[2019-09-20] MEDS: ATORVASTATIN 20 MG TAB PO SCH (07:56)
[2019-09-20 10:15] VITALS: BP 145/83
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
== END 2019-09-20 11:47 | DRG 948 ==
LOC: 2N 12:19 → ED 12:19 → SUATTDRO 18:08 → 2N 19:04 → SUATTDRO 09-16 16:08